=== PATIENT | female | born 2000 | race Caucasian/White ===

== ENCOUNTER 2020-11-29 13:07 | Emergency (ER) | payer OTHER ==
[~2020-11-29] VITALS: Ht 172.7 cm; Wt 79.4 kg
[2020-11-29] MEDS ORDERED: DUI500 PO (16:04)
== END 2020-11-29 16:16 | disposition home or self-care (01) ==
LOC: ER 13:07
DX: S60.562A Insect bite (nonvenomous) of left hand, initial encounter (principal); W57.XXXA Bitten or stung by nonvenomous insect and other nonvenomous arthropods, initial encounter; Y93.89 Activity, other specified; Y92.89 Other specified places as the place of occurrence of the external cause; Y99.8 Other external cause status